=== PATIENT | female | born 1960 | race African-American/Black ===

== ENCOUNTER 2025-01-11 14:14 | Emergency (ER) | payer BC, MEDICAID ==
[~2025-01-11] VITALS: Ht 157.5 cm; Wt 118.0 kg
[2025-01-11 14:23] VITALS: O2SAT 99
[2025-01-11 18:21] LABS: GLUCOSE URINE NEGATIVE (NEGATIVE); KETONES URINE NEGATIVE (NEGATIVE); LEUKOCYTE ESTERASE URINE 1+ (NEGATIVE); NITRITE URINE NEGATIVE (NEGATIVE); OCCULT BLOOD URINE NEGATIVE (NEGATIVE); PH URINE 5.5 (4.5-8.0); PROTEIN URINE NEGATIVE (NEGATIVE); SPECIFIC GRAVITY URINE 1.022 (1.005-1.030); UROBILINOGEN URINE 1.0 E.U./dL (0.2-1.0)
[2025-01-11 18:40] LABS: CLARITY URINE SL HAZY (CLEAR); COLOR URINE STRAW (YELLOW)
[2025-01-11 18:41] LABS: RBC URINE NONE SEEN /hpf (0-2)
[2025-01-11 18:42] LABS: BACTERIA URINE TRACE; SQUAMOUS EPITHELIAL CELL URINE 2+ /lpf (RARE/1+)
[2025-01-11] MEDS ORDERED: KETO10TA2 MT (18:49)
[2025-01-11] MEDS ORDERED: SULF1TAB48 MT (18:49)
[2025-01-11] MEDS ORDERED: LIDO700A30 TP (18:49)
[2025-01-11 18:50] VITALS: BP 159/87; PULSE 89; RESP 16; TEMP 36.6; O2SAT 98
== END 2025-01-11 19:05 | disposition home or self-care (01) ==
LOC: ER 14:14
DX: N39.0 Urinary tract infection, site not specified (principal); E78.00 Pure hypercholesterolemia, unspecified; I10 Essential (primary) hypertension; Z79.899 Other long term (current) drug therapy
CPT/HCPCS: 81003; 99283